=== PATIENT | female | born 1960 | race Caucasian/White ===

== ENCOUNTER 2022-01-31 08:10 | Outpatient (CLI) | payer OTHER, SELFPAY ==
[2022-01-31 10:19] LABS: Fecal Occult Blood* Positive (Negative)
[2022-01-31 13:42] LABS: Albumin* 4.7 g/dL (3.3-5.0); Chloride* 103 mmol/L (96-114); Potassium* 4.2 mmol/L (3.6-5.1); Sodium* 139 mmol/L (135-149)
[2022-01-31 13:44] LABS: Creatinine* 0.8 mg/dL (0.5-1.5); Estimated Glomerular Filt Rate 84 ml/min
[2022-01-31 13:45] LABS: Alanine Aminotransferase* 14 U/L (4-35); Alkaline Phosphatase* 51 U/L (40-150); Aspartate Amino Transferase* 25 U/L (12-35); Bilirubin Total* 0.6 mg/dL (0.1-1.5); Blood Urea Nitrogen* 12 mg/dL (7-30); Calcium* 9.6 mg/dL (8.4-10.6); Carbon Dioxide* 26 mmol/L (20-32); Glucose* 109 mg/dL (60-115); Lipase* 102 U/L (23-300); Total Protein* 7.7 g/dL (6.0-8.3)
[2022-01-31 14:49] LABS: CDIFFEPI 027 PRESUMPTIVE NEGATIVE (Negative)
[2022-01-31 15:11] LABS: C.Difficile POSITIVE (Negative)
== END 2022-01-31 08:11 | disposition home or self-care (01) ==
PROVIDERS: PCP Family Medicine; Visit Provider Family Medicine
DX: R30.0 Dysuria (principal); R10.9 Unspecified abdominal pain; N39.0 Urinary tract infection, site not specified; L03.90 Cellulitis, unspecified
CPT/HCPCS: 80053; 82270; 83690; 87045; 87046; 87086; 87186; 87427; 87493

== ENCOUNTER 2022-03-02 11:27 | Outpatient (CLI) | payer OTHER, SELFPAY ==
[2022-03-06 13:00] LABS: Adenovirus PCR Not Detected; Astrovirus PCR Not Detected; Campylobacter PCR Not Detected; Cdiff Toxin A/B PCR Detected; Cryptosporidium PCR Not Detected; Cyclospora cayetanensis PCR Not Detected; Entamoeba histolytica PCR Not Detected; Enteroaggregative E coli PCR Not Detected; Enteropathogenic E coli PCR Detected; Enterotoxigenic E coli PCR Not Detected; Giardia lamblia PCR Not Detected; Norovirus Gi/GII PCR Not Detected; Plesiomonas shig PCR Not Detected; Rotavirus A PCR Not Detected; Salmonella PCR Not Detected; Sapovirus PCR Not Detected; Shiga toxin E coli PCR Not Detected; Shigella/Enteroinvasive E coli Not Detected; Vibrio PCR Not Detected; Vibrio cholerae PCR Not Detected; Yersinia enterocolitica PCR Not Detected
== END 2022-03-02 11:28 | disposition home or self-care (01) ==
LOC: FRMREF 11:27
PROVIDERS: PCP Family Medicine; Visit Provider Family Medicine
DX: A04.72 Enterocolitis due to Clostridium difficile, not specified as recurrent (principal)
CPT/HCPCS: 87505

== ENCOUNTER 2022-12-09 14:56 | Outpatient (CLI) | payer OTHER, SELFPAY ==
--- NOTE | 2022-12-09 15:00 | CRLHL7_ITS ---
For Patients: As a result of the Cures Act, medical imaging exams and procedure reports are released immediately into your electronic medical record. You may view this report before your referring provider. If you have questions, please contact your health care provider. BILATERAL SCREENING MAMMOGRAM WITH COMPUTER-AIDED DETECTION AND TOMOSYNTHESIS TECHNIQUE: CC and MLO views were obtained. These mammographic images have been obtained using full-field digital technique. These mammographic images were interpreted with the benefit of computer-aided detection. Breast Tomosynthesis was used in this interpretation. COMPARISON FILM: 10/27/21, 09/16/20, 07/22/19. FINDINGS: The breasts are extremely dense, which lowers the sensitivity of mammography IMPRESSION: There is no radiographic evidence for malignancy. ASSESSMENT: BI-RADS Category 2: Benign RECOMMENDATION: Routine screening mammogram in 1 year. A lay language report of this examination will be provided to the patient. Fabian Guthrie M.D. Diagnostic Radiologist [email or web address]/[email or web address] / be/Dictated by: Fabian Guthrie MD @ 12/12/2022 8:17:00 AM (Electronically Signed)
== END 2022-12-09 14:57 | disposition home or self-care (01) ==
LOC: MAMMO 14:57
PROVIDERS: PCP Family Medicine; Visit Provider Obstetrics & Gynecology
DX: Z12.31 Encounter for screening mammogram for malignant neoplasm of breast (principal); R92.2 Inconclusive mammogram
CPT/HCPCS: 77063; 77067

== ENCOUNTER 2023-09-26 12:51 | Outpatient (CLI) | payer OTHER, SELFPAY ==
--- NOTE | 2023-09-26 13:00 | XR_ITS ---
Patient: CRISTÓBAL MONTES Facility:?[facility] Patient ID:?[id number] Site Patient ID:?[id number]. Site :?[id number] Study:?DEXA-Pelvis SPINE/HIPS-09/26/2023 1:28:36 PM Ordering Physician:?Abena Vinson Final Report: DXA BONE MINERAL DENSITY STUDY Reason for exam: History of osteopenia. Current height (in): 65. Weight (lb): 130. Menopause age: 45. Ethnicity: White. 1. Have you had a previous hip or vertebral fracture? No. 2. Have you had any fractures during your adult life which did not result from significant trauma (e.g., auto accident)? No. 3. Did either of your parents have a hip fracture? No. 4. Do you smoke? No. 5. Have you ever taken Glucocorticoids? No. 6. Do you have rheumatoid arthritis? No. 7. Do you have secondary osteoporosis? No. 8. Do you drink 3 or more alcoholic drinks per day? No. 9. Are you being treated for osteoporosis? No. 10. Have you ever taken any of the following medications: Actonel, Evista, Fosamax, Miacalcin, Reclast, Boniva, Forteo, HRT (i.e., estrogen/hormone therapy), Protelos, Prolia, Vitamin D, Calcium, other ? please specify. ANSWER: Yes, Fosamax (i.e., alendronate). 11. Do you have any of the following medical conditions: Anorexia or bulimia, asthma or emphysema, end stage renal disease, hyperparathyroidism, any seizure disorders, cancer, inflammatory bowel diseases, hysterectomy, other ? please specify. ANSWER: Yes, hysterectomy. 12. What was your maximum height (inches)? 65.5. 13. Do you perform weight bearing exercise regularly? Yes. 14. Do you regularly consume dairy products? Yes. 15. Do you drink caffeinated beverages? Yes. 16. At what age did your period start? 14. 17. Are you premenopausal? No. 18. How many full-term pregnancies have you had? 3. 19. Have you ever missed your period for more than 6 months in a row (not including or menopause)? No. TECHNIQUE: Bone mineral density study was performed using the [employer]. FINDINGS: The results of the study expressed as bone mineral density (BMD) are as follows: Lumbar spine L1 to L4: BMD: 0.947 g/cm2. T-score: -0.9. Z-score: 0.7 Neck Left: BMD: 0.657 g/cm2. T-score: -1.7. Z-score: -0.3 Right: BMD: 0.697 g/cm2. T-score: -1.4. Z-score: 0.1 Total Left: BMD: 0.764 g/cm2. T-score: -1.5. Z-score: -0.3 Right: BMD: 0.800 g/cm2. T-score: -1.2. Z-score: 0.0 IMPRESSION: Osteopenia. *Comparison exams done prior to 10/2019 were performed on different unit, [employer]. COMPARISON: Compared with scan of 10/08/2020, the bone mineral density has increased by 2.1 percent at the spine and increased by 1.0 percent at the hip. Compared with scan of 02/19/2018, the bone mineral density has increased by 4.5 percent at the hip. FRAX 10-year Fracture Risk Major Osteoporotic Fracture: 8.6% Hip Fracture: 1.0% Reported Risk Factors: [place] () Neck BMD=0.657, BMI=21.6 Fabian Guthrie M.D. Diagnostic Radiologist [email or web address] RAJIV/[email or web address] D& Transcribed: 1:36 p.mMicah everett/Dictated by: Fabian Guthrie MD @ 09/27/2023 10:45:00 AM Signed by:?Fabian Guthrie MD @09/27/2023 1:58:53 PM (Electronic Signature)
== END 2023-09-26 12:52 | disposition home or self-care (01) ==
LOC: RAD 12:53
PROVIDERS: PCP Family Medicine; Visit Provider Obstetrics & Gynecology
DX: M85.80 Other specified disorders of bone density and structure, unspecified site (principal); M85.89 Other specified disorders of bone density and structure, multiple sites
CPT/HCPCS: 77080

== ENCOUNTER 2023-12-20 10:07 | Outpatient (CLI) | payer OTHER, SELFPAY ==
--- NOTE | 2023-12-20 10:15 | CRLHL7_ITS ---
For Patients: As a result of the Century Cures Act, medical imaging exams and procedure reports are released immediately into your electronic medical record. You may view this report before your referring provider. If you have questions, please contact your health care provider. BILATERAL SCREENING MAMMOGRAM WITH COMPUTER-AIDED DETECTION AND TOMOSYNTHESIS TECHNIQUE: CC and MLO views were obtained. These mammographic images have been obtained using full-field digital technique. These mammographic images were interpreted with the benefit of computer-aided detection. Breast Tomosynthesis was used in this interpretation. COMPARISON FILM: 12/09/22, 10/27/21, 09/16/20. FINDINGS: The breasts are heterogeneously dense, which may obscure small masses IMPRESSION: There is no radiographic evidence for malignancy. ASSESSMENT: BI-RADS Category 2: Benign RECOMMENDATION: Routine screening mammogram in 1 year. A lay language report of this examination will be provided to the patient. Fabian Guthrie M.D. Diagnostic Radiologist [email or web address] RAJIV/[email or web address] Transcribed: 6:46 p.mMicah everett/Dictated by: Fabian Guthrie MD @ 12/21/2023 10:21:00 AM (Electronically Signed)
== END 2023-12-20 10:08 | disposition home or self-care (01) ==
LOC: MAMMO 10:07
PROVIDERS: PCP Family Medicine; Visit Provider Obstetrics & Gynecology
DX: Z12.31 Encounter for screening mammogram for malignant neoplasm of breast (principal); R92.2 Inconclusive mammogram
CPT/HCPCS: 77063; 77067

== ENCOUNTER 2024-07-02 06:31 | Outpatient (CLI) | payer OTHER, SELFPAY ==
--- NOTE | 2024-07-02 07:46 | W.ANESCHARGE ---
Anesthesia Charges Start Date/Time Anesthesia Start Date: 07/02/24 Anesthesia Start Time: 07:13 Stop Date/Time Anesthesia Stop Date: 07/02/24 Anesthesia Stop Time: 07:43 Coding CPT Codes CPT Codes: ANES LWR INTST SCR COLSC - [id number] ([id number]) P3 - PATIENT W/SEVERE SYS DISEASE, QK - BOTTOM MAN 2-4 CNCRNT ANES PROC, QX - LUMBER STACKER DRIVER SVC W/ MD MED DIRECTION
--- NOTE | 2024-07-02 07:47 | W.ANESCHARGE ---
Anesthesia Charges Start Date/Time Anesthesia Start Date: 07/02/24 Anesthesia Start Time: 07:13 Stop Date/Time Anesthesia Stop Date: 07/02/24 Anesthesia Stop Time: 07:43 Coding CPT Codes CPT Codes: ANES LWR INTST SCR COLSC - [id number] ([id number]) P2 - PATIENT W/MILD SYST DISEASE, QK - BAGGAGE CHECKER 2-4 CNCRNT ANES PROC, QX - EMPLOYEE SERVICES MANAGER SVC W/ MD MED DIRECTION
--- NOTE | 2024-07-02 07:48 | W.ANESCHARGE ---
Anesthesia Charges Start Date/Time Anesthesia Start Date: 07/02/24 Anesthesia Start Time: 07:13 Stop Date/Time Anesthesia Stop Date: 07/02/24 Anesthesia Stop Time: 07:43 Coding CPT Codes CPT Codes: ANES LWR INTST SCR COLSC - [id number] ([id number]) QX - EMBEDDED SOFTWARE DEVELOPER SVC W/ MD MED DIRECTION, QK - LIGHT CLEANER 2-4 CNCRNT ANES PROC, P3 - PATIENT W/SEVERE SYS DISEASE
== END 2024-07-02 06:32 | disposition home or self-care (01) ==
LOC: OP CLINIC 06:32
PROVIDERS: PCP Family Medicine; Visit Provider Surgery
DX: Z12.11 Encounter for screening for malignant neoplasm of colon (principal); K64.8 Other hemorrhoids; Z86.0100 Personal history of colon polyps, unspecified; Z80.0 Family history of malignant neoplasm of digestive organs
CPT/HCPCS: 00812; 45378; J2704

== ENCOUNTER 2024-07-06 11:08 | Outpatient (CLI) | payer OTHER, SELFPAY | END 2024-07-06 11:09 | disposition home or self-care (01) | LOC: NFLDREF 07-08 02:18 | PROVIDERS: PCP Family Medicine; Referring Provider Family Medicine; Visit Provider Family Medicine | DX: N39.0 Urinary tract infection, site not specified (principal); B96.20 Unspecified Escherichia coli [E. coli] as the cause of diseases classified elsewhere | CPT/HCPCS: 87086 ==

== ENCOUNTER 2024-08-07 10:32 | Outpatient (CLI) | payer OTHER, SELFPAY | END 2024-08-07 10:33 | disposition home or self-care (01) | LOC: FRMREF 10:33 | PROVIDERS: PCP Family Medicine; Visit Provider Physician Assistant | DX: R35.0 Frequency of micturition (principal) | CPT/HCPCS: 87086 ==

== ENCOUNTER 2024-10-07 07:05 | Outpatient (CLI) | payer OTHER, SELFPAY | END 2024-10-07 07:06 | disposition home or self-care (01) | LOC: NFLDREF 18:51 | PROVIDERS: PCP Family Medicine; Referring Provider Family Medicine; Visit Provider Physician Assistant Medical | DX: N30.00 Acute cystitis without hematuria (principal) | CPT/HCPCS: 87086 ==

== ENCOUNTER 2024-11-13 10:51 | Outpatient (CLI) | payer OTHER, SELFPAY ==
--- NOTE | 2024-11-13 11:00 | CRLHL7_ITS ---
For Patients: As a result of the Century Cures Act, medical imaging exams and procedure reports are released immediately into your electronic medical record. You may view this report before your referring provider. If you have questions, please contact your health care provider. INDICATION: Tinnitus, left ear TECHNIQUE: Non-contrast CT bilateral temporal bones. COMPARISON: CT sinuses dated 04/28/2020. FINDINGS: Right temporal bone: Minimal nodular density along the margin of the external auditory canal most likely reflects cerumen. The tympanic membrane is unremarkable. The ossicular chain is intact. The middle ear cavity and mastoid air cells are clear without evidence of bony erosion. The fluid containing vestibulocochlear inner ear structures are unremarkable. Unremarkable appearance of the internal auditory and facial nerve canals. Left temporal bone: Unremarkable appearance of the external auditory canal and tympanic membrane. The ossicular chain is intact. The middle ear cavity and mastoid air cells are clear without evidence of bony erosion. The fluid containing vestibulocochlear inner ear structures are unremarkable. Unremarkable appearance of the internal auditory and facial nerve canals. No evidence of a sigmoid sinus diverticulum, ICA dehiscence, or a high-riding jugular bulb. Extracranial soft tissues: Unremarkable. Partially visualized paranasal sinuses: Mild mucosal thickening in the left inferior maxillary sinus. 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 Visualized intracranial contents: Unremarkable. IMPRESSION: Essentially unremarkable appearance of the bilateral temporal bone structures. No discrete cause for the reported left-sided tinnitus is identified. Please note that all CT scans at this facility use dose modulation, iterative reconstruction, and/or weight-based dosing when appropriate to reduce radiation dose to as low as reasonably achievable. Dictated by Shane Khan MD @ 11/13/2024 5:40:12 PM (Electronically Signed)
== END 2024-11-13 10:52 | disposition home or self-care (01) ==
LOC: CT 10:51
PROVIDERS: PCP Family Medicine; Visit Provider Physician Assistant
DX: H93.12 Tinnitus, left ear (principal)
CPT/HCPCS: 70480

== ENCOUNTER 2024-11-15 08:26 | Outpatient (CLI) | payer OTHER, SELFPAY | END 2024-11-15 08:27 | disposition home or self-care (01) | LOC: NFLDREF 11-19 14:27 | PROVIDERS: PCP Family Medicine; Referring Provider Family Medicine; Visit Provider Obstetrics & Gynecology | DX: Z13.6 Encounter for screening for cardiovascular disorders (principal); Z13.1 Encounter for screening for diabetes mellitus; Z13.29 Encounter for screening for other suspected endocrine disorder | CPT/HCPCS: 80061; 82947; 84443 ==

== ENCOUNTER 2024-12-24 13:16 | Outpatient (CLI) | payer OTHER, SELFPAY ==
--- NOTE | 2024-12-24 13:20 | CRLHL7_ITS ---
For Patients: As a result of the Century Cures Act, medical imaging exams and procedure reports are released immediately into your electronic medical record. You may view this report before your referring provider. If you have questions, please contact your health care provider. INDICATION: BILATERAL SCREENING MAMMOGRAM, ASYMPTOMATIC 64 Y/O FEMALE COMPARISON: 12/20/2023, 12/09/2022, 10/27/2021 TECHNIQUE: Digital mammogram in CC and MLO projections including computer-aided detection (CAD) and tomosynthesis. BREAST COMPOSITION: The breasts are heterogeneously dense, which may obscure small masses. FINDINGS: No suspicious findings. ASSESSMENT: BI-RADS 2 Benign RECOMMENDATION: Annual screening mammogram. A lay language report of this examination will be provided to the patient. Dictated by: Lyubov Whiteside MD @ 12/24/2024 15:55:30 (Electronically Signed)
== END 2024-12-24 13:17 | disposition home or self-care (01) ==
LOC: MAMMO 13:17
PROVIDERS: PCP Family Medicine; Visit Provider Obstetrics & Gynecology
DX: Z12.31 Encounter for screening mammogram for malignant neoplasm of breast (principal); R92.333 Mammographic heterogeneous density, bilateral breasts
CPT/HCPCS: 77063; 77067